=== PATIENT | male | born 1950 | race Caucasian/White ===

== ENCOUNTER 2019-02-21 01:30 | Emergency (ER) | payer MEDICARE, OTHER ==
[~2019-02-21] VITALS: Ht 182.9 cm; Wt 81.7 kg
[~2019-02-21 01:30] MED LIST: ASPIR 8181 MG PO; METANX CAPSULE1 EACH PO; VITAMIN D2000 UNIT PO
[2019-02-21] MEDS ORDERED: COZAAR100 MG PO (01:39)
[2019-02-21] MEDS ORDERED: VITAMIN B12-FO1 EAC1 PO (01:40)
[2019-02-21] MEDS ORDERED: FLOMAX0.4 MG PO (01:40)
[2019-02-21] MEDS ORDERED: MEDROL4 M1 PO (01:40)
[2019-02-21 01:55] LABS: ABSOLUTE BASOPHILS 0.1 thou/uL (0.0-0.2); ABSOLUTE LYMPHOCYTES 2.2 thou/uL (0.8-5.3); ABSOLUTE MONOCYTES 0.8 thou/uL (0.0-1.2); ABSOLUTE NEUTROPHILS 6.1 thou/uL (1.6-8.1); BASOPHILS 0.8 %; EOSINOPHILS 0.3 %; HEMATOCRIT 42.6 % (42.0-52.0); HEMOGLOBIN 14.9 gm/dL (14.0-18.0); LYMPHOCYTES 24.4 %; MCH 32.3 pg (26.0-34.0); MCHC 35.1 g/dL (28.0-37.0); MCV 92.2 fL (80.0-100.0); MONOCYTES 8.6 %; MPV 7.3 fl. (7.2-11.1); NUCLEATED RBCS 0 /100WBC; PLATELET COUNT* 238 thou/uL (150-400); POLYS 65.9 %; RBC 4.62 mil/uL (4.50-6.00); RDW-CV 13.2 % (10.5-14.5); WBC 9.2 thou/uL (4.0-11.0)
[2019-02-21 02:15] LABS: CALCIUM 9.1 mg/dL (8.5-10.1); CREATININE 1.1 mg/dL (0.6-1.3); POTASSIUM 3.8 mmol/L (3.5-5.1)
[2019-02-21 02:23] LABS: ALBUMIN 4.1 g/dL (3.4-5.0); TOTAL BILIRUBIN 0.7 mg/dL (<0.1-1.0); TOTAL PROTEIN 7.3 g/dL (6.4-8.2)
[2019-02-21] MEDS ORDERED: NORVASC 2.5 MG2.5 M1 PO ×2 (02:42→02:44)
[2019-02-21 03:00] VITALS: BP 145/78
--- NOTE | 2019-02-22 11:32 | EKG ---
[place] [address] ELECTROCARDIOGRAM REPORT Name: CINDI MARIE Room: [facility]#: [id number] Admission: 02/21/19 Attend Phys: Discharge: 02/21/19 Date of : 50 Report #: [id number] THIS REPORT FOR: //name// [facility] ED Test Date: 2019-02-21 Test Time: 01:40:02 Pat Name: CINDI MARIE Department: Room: Gender: Evaluation Analyst: [place] : 1950 Requested By: Gurwinder Almanza Order Number: [id number] MD: Adrian Abdalla Measurements Intervals [place]ad Rate: 85 P: 61 MI: 160 QRS: -82 QRSD: 103 T: 57 QT: 371 QTc: 442 Interpretive Statements Sinus rhythm Left anterior fascicular block Compared to ECG 10/17/2015 10:14:01 No significant changes Electronically Signed On 02-22-2019 11:32:18 CORPORATE PLANNING MANAGER by Adrian Abdalla [email or web address] <ELECTRONICALLY SIGNED> By: Adrian Abdalla MD, [facility] 02/22/19 1132 0140 014 Adrian Abdalla MD, FACC /EPI
== END 2019-02-21 03:00 | disposition home or self-care (01) ==
LOC: M.ERS 01:30
PROVIDERS: Emergency Medicine
DX: I10 Essential (primary) hypertension (principal); T38.0X5A Adverse effect of glucocorticoids and synthetic analogues, initial encounter; G62.9 Polyneuropathy, unspecified; F41.9 Anxiety disorder, unspecified; Z86.73 Personal history of transient ischemic attack (TIA), and cerebral infarction without residual deficits; Z98.890 Other specified postprocedural states; Y92.89 Other specified places as the place of occurrence of the external cause

== ENCOUNTER 2019-03-17 19:47 | Emergency (ER) | payer MEDICARE, OTHER ==
[~2019-03-17] VITALS: Ht 182.9 cm; Wt 81.7 kg
[~2019-03-17 19:47] MED LIST changes: +COZAAR100 MG PO; +FLOMAX0.4 MG PO; +MEDROL4 M1 PO; +NORVASC 2.5 MG2.5 M1 PO; +VITAMIN B12-FO1 EAC1 PO
[2019-03-17 20:34] LABS: URINE BILIRUBIN NEGATIVE (Negative); URINE BLOOD NEGATIVE (Negative); URINE CLARITY CLEAR; URINE COLOR YELLOW; URINE GLUCOSE-RANDOM NEGATIVE (Negative); URINE KETONES TRACE (Negative); URINE LEUKOCYTES-REFLEX NEGATIVE (Negative); URINE NITRITE-REFLEX NEGATIVE (Negative); URINE PROTEIN NEGATIVE (Negative); URINE UROBILINOGEN 0.2 E.U./dl (0.2-1.0)
[2019-03-17 20:45] LABS: ABSOLUTE BASOPHILS 0.1 thou/uL (0.0-0.2); ABSOLUTE EOSINOPHILS 0.1 thou/uL (0.0-0.7); ABSOLUTE LYMPHOCYTES 1.6 thou/uL (0.8-5.3); ABSOLUTE MONOCYTES 0.8 thou/uL (0.0-1.2); ABSOLUTE NEUTROPHILS 6.5 thou/uL (1.6-8.1); BASOPHILS 0.9 %; EOSINOPHILS 0.6 %; HEMATOCRIT 39.4 % (42.0-52.0); HEMOGLOBIN 14.1 gm/dL (14.0-18.0); LYMPHOCYTES 17.7 %; MCH 32.4 pg (26.0-34.0); MCHC 35.7 g/dL (28.0-37.0); MCV 90.9 fL (80.0-100.0); MONOCYTES 8.7 %; MPV 7.2 fl. (7.2-11.1); NUCLEATED RBCS 0 /100WBC; PLATELET COUNT* 267 thou/uL (150-400); POLYS 72.1 %; RBC 4.34 mil/uL (4.50-6.00); RDW-CV 12.8 % (10.5-14.5)
[2019-03-17 20:54] LABS: CALCIUM 8.8 mg/dL (8.5-10.1); CREATININE 0.9 mg/dL (0.6-1.3); POTASSIUM 3.9 mmol/L (3.5-5.1)
[2019-03-17 21:04] LABS: ALBUMIN 3.9 g/dL (3.4-5.0); TOTAL BILIRUBIN 0.6 mg/dL (<0.1-1.0); TOTAL PROTEIN 7.1 g/dL (6.4-8.2)
[2019-03-17 22:43] VITALS: BP 135/73
--- NOTE | 2019-03-18 12:53 | EKG ---
[place] [address] ELECTROCARDIOGRAM REPORT Name: CINDI MARIE Room: [facility]#: [id number] Admission: 03/17/19 Attend Phys: Discharge: 03/17/19 Date of : 50 Report #: [id number] THIS REPORT FOR: //name// [facility] ED Test Date: 2019-03-17 Test Time: 20:25:41 Pat Name: CINDI MARIE Department: Room: Gender: Manager Care: : 1950 Requested By: Gaston Garza Order Number: [id number] MD: Fei Gross Measurements Intervals [place] Rate: 71 P: 30 OR: 188 QRS: -71 QRSD: 104 T: 31 QT: 384 QTc: 418 Interpretive Statements Sinus rhythm Incomplete RBBB and LAFB RSR' in V1 or V2, right VCD Compared to ECG 02/21/2019 01:40:02 Incomplete right bundle-branch block now present RSR' in V1 or V2 now present Electronically Signed On 03-18-2019 12:52:58 CABINET ASSEMBLER by Fei Gross [email or web address] <ELECTRONICALLY SIGNED> By: Fei Gross MD, FACC 03/18/19 1252 24 24 Fei Gross MD, FAC /EPI
== END 2019-03-17 22:44 | disposition home or self-care (01) ==
LOC: M.ERS 19:47
PROVIDERS: Physician Assistant
DX: R53.1 Weakness (principal); G62.9 Polyneuropathy, unspecified; F41.9 Anxiety disorder, unspecified; Z86.73 Personal history of transient ischemic attack (TIA), and cerebral infarction without residual deficits

== ENCOUNTER → 2019-04-26 | Outpatient (CLI) | payer MEDICARE, OTHER ==
[2019-04-28 04:09] LABS: ANA INTERPRETATION Negative (Negative); ANTI-SSA <0.2 AI (0.0-0.9); ANTIJO-I AB <0.2 AI (0.0-0.9)
== END ==
LOC: M.LAB 15:49
PROVIDERS: Psychiatry & Neurology Neuromuscular Medicine
DX: G62.9 Polyneuropathy, unspecified (principal); R29.898 Other symptoms and signs involving the musculoskeletal system